=== PATIENT | male | born 1960 | race Caucasian/White ===

== ENCOUNTER → 2016-05-10 | Outpatient (CLI) | payer SELFPAY ==
[~2016-05-10] MED LIST: DICLOFENAC PO; ROBAXIN PO
--- NOTE | ~2016-05-10 | US6 ---
[facility] A Service of [facility] RADIOLOGY TEXT RESULTS PATIENT: NORBERTO PANDA LOCATION: SGUS : 64 UNIT #: [id number] AGE: [address]: LALA LIMON MD SEX: M ORDER DR: [id number] [place] [address] [id number] O MR#: [id number] Acc #: [id number] NAME: NORBERTO PANDA : 1960 SEX: M STUDY DATE/TIME: 05/10/2016 9:48 UNIT: SGUS ROOM: STUDY DESCRIPTION: US Abdominal Limited Attending Physician: Anastasiya Limon M.D. Referring Physician: Anastasiya Limon M.D. Ordering Physician: Anastasiya Limon M.D. Primary Care Physician: No Primary Care Physician MEDICAL IMAGING REPORT This report is preliminary unless electronic signature is present. EXAM Right upper quadrant abdominal ultrasound 04/12/2016 HISTORY Right upper quadrant abdominal pain for the past 2 weeks. PROCEDURE Brito-scale and Doppler imaging right upper quadrant of the abdomen. COMPARISON STUDIES None FINDINGS Pancreas is completely obscured by bowel gas. The liver shows increased echotexture compared with the right kidney. Liver measures 15.7 cm. Common duct measures 3 mm. Unremarkable gallbladder. Right kidney measures 11.5 cm. IMPRESSION 1. Slightly increased liver echotexture could represent mild hepatic steatosis. 2. Pancreas is obscured by bowel gas and not well seen. 3. Otherwise negative right upper quadrant ultrasound. 1. Dictated by... Juan Manuel Paiz M.D. THIS IS AN ELECTRONICALLY VERIFIED REPORT Juan Manuel Paiz M.D. at 05/14/2016 7:02 AM Lana TD: 05/10/2016 17:02 [facility] A Service [facility][1] RADIOLOGY TEXT RESULTS PATIENT: NORBERTO PANDA LOCATION: SGUS : 64 UNIT #: [id number] AGE: [address]: LALA LIMON MD SEX: M ORDER DR: JOB #: [id number] MEDICAL IMAGING REPORT
== END | disposition home or self-care (01) ==
LOC: SGUS 09:35
DX: R10.11 Right upper quadrant pain (principal); R93.2 Abnormal findings on diagnostic imaging of liver and biliary tract
CPT/HCPCS: 76705